=== PATIENT | female | born 1995 | race Caucasian/White ===

== ENCOUNTER 2022-05-03 20:35 | Emergency (ER) | payer BC, OTHER ==
--- NOTE | 2022-05-03 21:30 | ERPHSYRPT ---
- History of Present Illness Time Seen by Provider: 05/03/22 21:40 Source: patient Exam Limitations: no limitations Physician History: This is a 26-year-old obese white female patient of Dr. Juárez who has a history of intracranial arachnoid cyst. She is not on any antiseizure medication. She has not seen her neurologist in 9 to 10 years. Patient states that she has not had a seizure since 2019. While she was driving today, the patient noticed dizziness followed by what she feels was a seizure and then a headache after the seizure. Patient denies head trauma. However she does states she does have a pinched nerve in her neck and underwent deep massage today. Patient states she is breast-feeding. When she woke from the seizure she was in a field with her s ju view mirror broken Timing/Duration: today Severity: mild Character of Deficits: none, Right Facial Baseline/Normal Cognition: alert oriented x 3 Current Cognition: alert oriented x 3 Baseline Gait: walks w/o assistance Associated Symptoms: seizures Allergies/Adverse Reactions: kiwi Allergy (Verified 05/03/22 21:53) tongue swells Penicillins Allergy (Verified 05/03/22 21:52) Hives almonds Allergy (Uncoded 05/03/22 21:53) tongue swelling Home Medications: Naproxen 500 mg [Naprosyn 500 MG] 1 tab PO Q6H PRN PRN 05/03/22 [History] Hx Tetanus, Diphtheria Vaccination/Date Given: No Hx Influenza Vaccination/Date Given: No Hx Pneumococcal Vaccination/Date Given: No Travel Risk - International Travel Have you traveled outside of the country in past 3 weeks: No - Coronavirus Screening Are you exhibiting any of the following symptoms?: No Close contact with a COVID-19 positive Pt in past 14-21 Days: No - Review of Systems Constitutional: No Symptoms Eyes: No Symptoms Ears, Nose, & Throat: No Symptoms Respiratory: No Symptoms Cardiac: No Symptoms Abdominal/Gastrointestinal: No Symptoms Genitourinary Symptoms: No Symptoms Musculoskeletal: No Symptoms Skin: No Symptoms Neurological: Dizziness, Headache, Seizure Psychological: No Symptoms Endocrine: No Symptoms Hematologic/Lymphatic: No Symptoms Immunological/Allergic: No Symptoms All Other Systems: Reviewed and Negative - Past Medical History Pertinent Past Medical History: Yes Neurological History: Seizures ENT History: Other Cardiac History: Arrhythmia Respiratory History: No Pertinent History Endocrine Medical History: No Pertinent History Musculoskeletal History: No Pertinent History GI Medical History: Other History: No Pertinent History Psycho-Social History: No Pertinent History Female Reproductive Disorders: No Pertinent History Other Medical History: IN 2014, PATIENT DIAGNOSED WITH CYST IN UPPER NECK (NEAR C1 AND HAS NOT BEEN MONITORED SINCE THEN). - Past Surgical History Past Surgical History: No Neuro Surgical History: No Pertinent History Cardiac: No Pertinent History Respiratory: No Pertinent History Gastrointestinal: No Pertinent History Genitourinary: No Pertinent History Musculoskeletal: No Pertinent History Female Surgical History: No Pertinent History Other Surgical History: colonoscopy - Social History Smoking Status: Current every day smoker How long have you smoked: 2 Exposure to second hand smoke: Yes Drug Use: none Patient Lives Alone: No - Nursing Vital Signs Nursing Vital Signs: Initial Vital Signs Temperature 98.6 F 05/03/22 21:36 Pulse Rate 83 05/03/22 21:36 Respiratory Rate 18 05/03/22 21:36 Blood Pressure 144/89 05/03/22 21:36 O2 Sat by Pulse Oximetry 99 05/03/22 21:36 Pain Scale Pain Intensity 0 - Alston Coma Scale Best Eye Response (Alston): (4) open spontaneously Best Verbal Response (Blair): (5) oriented Best Motor Response (Blair): (6) obeys commands Alston Total: 15 - Physical Exam General Appearance: no apparent distress, alert, anxiety, obese Eye Exam: bilateral eye: normal inspection, PERRL, EOMI Ears, Nose, Throat Exam: normal ENT inspection, moist mucous membranes Neck Exam: normal inspection, non-tender, supple, full range of motion Respiratory: normal breath sounds, lungs clear, airway intact, No chest tenderness, No respiratory distress Cardiovascular: regular rate/rhythm, normal heart sounds, normal peripheral pulses Gastrointestinal: soft, normal bowel sounds, No tenderness Pelvic Exam: not done Rectal Exam: not done Back Exam: normal inspection, normal range of motion, No CVA tenderness, No vertebral tenderness Extremity Exam: normal inspection, normal range of motion, pelvis stable Mental Status: alert, oriented x 3, 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 Exam: normal hearing, normal speech, PERRL Coordination/Gait: normal finger to nose, normal gait, normal cerebellar function Motor/Sensory: no motor deficit, no sensory deficit Skin Exam: normal color, warm, dry SpO2 Interpretation: normal O2 Delivery: Room Air Ordered Tests: Active Orders 24 hr Category Date Time Status Clean Catch Urine Specimen STAT Care 05/03/22 21:55 Active Pulse Oximetry (ED) STAT Care 05/03/22 21:48 Active Seizure Precautions -SCCHED STAT Care 05/03/22 21:48 Active HEAD WITHOUT CONTRAST [CT] Stat Exams 05/03/22 21:49 Taken CBC W DIFF Stat Lab 05/03/22 22:22 Completed CMP Stat Lab 05/03/22 22:22 Completed HCG QUALITATIVE,SERUM Stat Lab 05/03/22 22:22 Completed UA W/RFX UR CULTURE Stat Lab 05/03/22 21:55 Completed Urine Triage Profile Stat Lab 05/03/22 21:55 Completed Lab/Rad Data: Laboratory Result Diagrams 05/03/22 22:22 05/03/22 22:22 Laboratory Results 05/03/22 05/03/22 05/03/22 Range/Units 22:22 22:22 22:22 WBC 10.3 (4.0-10.5) x10^3/uL RBC 4.10 (4.1-5.4) x10^6/uL Hgb 12.0 (12.0-16.0) g/dL Hct 38.1 (35-47) % MCV 92.9 (78-100) fL MCH 29.3 (26-32) pg MCHC 31.5 L (32-36) g/dL RDW 11.8 (11.5-14.0) % Plt Count 296 (150-450) x10^3/uL MPV 10.3 (7.5-11.0) fL Gran % 59.0 (36.0-66.0) % Immature Gran % (Auto) 0.1 (0.00-0.4) % Nucleat RBC Rel Count 0.0 (0.00-0.1) % Eos # (Auto) 0.12 (0-0.5) x10^3/uL Immature Gran # (Auto) 0.01 (0.00-0.03) x10^3u/L Absolute Lymphs (auto) 3.35 (1.0-4.6) x10^3/uL Absolute Monos (auto) 0.69 (0.0-1.3) x10^3/uL Absolute Nucleated RBC 0.00 (0.00-0.01) x10^3u/L Lymphocytes % 32.6 (24.0-44.0) % Monocytes % 6.7 (0.0-12.0) % Eosinophils % 1.2 (0.00-5.0) % Basophils % 0.4 (0.0-0.4) % Absolute Granulocytes 6.06 (1.4-6.9) x10^3/uL Basophils # 0.04 (0-0.4) x10^3/uL Sodium 138 (137-145) mmol/L Potassium 4.2 (3.5-5.1) mmol/L Chloride 107 (98-107) mmol/L Carbon Dioxide 25 (22-30) mmol/L Anion Gap 10.9 (5-15) MEQ/L BUN 17 (7-17) mg/dL Creatinine 0.58 (0.52-1.04) mg/dL Estimated GFR > 60.0 ML/MIN Glucose 104 (74-106) mg/dL Calcium 9.5 (8.4-10.2) mg/dL Total Bilirubin 0.30 (0.2-1.3) mg/dL AST 20 (14-36) U/L ALT 20 (0-35) U/L Alkaline Phosphatase 102 (38-126) U/L Serum Total Protein 7.2 (6.3-8.2) g/dL Albumin 4.2 (3.5-5.0) g/dL Serum , Qual NEGATIVE (Negative) Urine Color (Yellow) Urine Appearance (Clear) Urine pH (4.6-8.0) Ur Specific Hudson (1.005-1.030) Urine Protein (Negative) Urine Glucose (UA) (Negative) mg/dL Urine Ketones (Negative) Urine Blood (Negative) Urine Nitrite (Negative) Urine Bilirubin (Negative) Urine Urobilinogen (0.2) mg/dL Ur Leukocyte Esterase (Negative) U Hyaline Cast (Auto) (0-2) /LPF Urine Microscopic RBC (0-5) /HPF Urine Microscopic WBC (0-5) /HPF Ur Epithelial Cells (None Seen) /HPF Urine Bacteria (None Seen) /HPF Urine Culture Reflexed (NO) Urine Opiates Level (NEGATIVE) Ur Methadone (NEGATIVE) Urine Barbiturates (NEGATIVE) Ur Phencyclidine (PCP) (NEGATIVE) Urine Amphetamine (NEGATIVE) U Benzodiazepine Level (NEGATIVE) Urine Cocaine (NEGATIVE) Urine Marijuana (THC) (NEGATIVE) 05/03/22 05/03/22 Range/Units 21:55 21:55 WBC (4.0-10.5) x10^3/uL RBC (4.1-5.4) x10^6/uL Hgb (12.0-16.0) g/dL Hct (35-47) % MCV (78-100) fL MCH (26-32) pg MCHC (32-36) g/dL RDW (11.5-14.0) % Plt Count (150-450) x10^3/uL MPV (7.5-11.0) fL Gran % (36.0-66.0) % Immature Gran % (Auto) (0.00-0.4) % Nucleat RBC Rel Count (0.00-0.1) % Eos # (Auto) (0-0.5) x10^3/uL Immature Gran # (Auto) (0.00-0.03) x10^3u/L Absolute Lymphs (auto) (1.0-4.6) x10^3/uL Absolute Monos (auto) (0.0-1.3) x10^3/uL Absolute Nucleated RBC (0.00-0.01) x10^3u/L Lymphocytes % (24.0-44.0) % Monocytes % (0.0-12.0) % Eosinophils % (0.00-5.0) % Basophils % (0.0-0.4) % Absolute Granulocytes (1.4-6.9) x10^3/uL Basophils # (0-0.4) x10^3/uL Sodium (137-145) mmol/L Potassium (3.5-5.1) mmol/L Chloride (98-107) mmol/L Carbon Dioxide (22-30) mmol/L Anion Gap (5-15) MEQ/L BUN (7-17) mg/dL Creatinine (0.52-1.04) mg/dL Estimated GFR ML/MIN Glucose (74-106) mg/dL Calcium (8.4-10.2) mg/dL Total Bilirubin (0.2-1.3) mg/dL AST (14-36) U/L ALT (0-35) U/L Alkaline Phosphatase (38-126) U/L Serum Total Protein (6.3-8.2) g/dL Albumin (3.5-5.0) g/dL Serum , Qual (Negative) Urine Color Yellow (Yellow) Urine Appearance Clear (Clear) Urine pH 6.5 (4.6-8.0) Ur Specific Hudson 1.010 (1.005-1.030) Urine Protein Negative (Negative) Urine Glucose (UA) Negative (Negative) mg/dL Urine Ketones Negative (Negative) Urine Blood Negative (Negative) Urine Nitrite Negative (Negative) Urine Bilirubin Negative (Negative) Urine Urobilinogen 0.2 (0.2) mg/dL Ur Leukocyte Esterase Negative (Negative) U Hyaline Cast (Auto) NONE SEEN (0-2) /LPF Urine Microscopic RBC 0-2 (0-5) /HPF Urine Microscopic WBC 0-2 (0-5) /HPF Ur Epithelial Cells None Seen (None Seen) /HPF Urine Bacteria None Seen (None Seen) /HPF Urine Culture Reflexed NO (NO) Urine Opiates Level NEGATIVE (NEGATIVE) Ur Methadone NEGATIVE (NEGATIVE) Urine Barbiturates NEGATIVE (NEGATIVE) Ur Phencyclidine (PCP) NEGATIVE (NEGATIVE) Urine Amphetamine NEGATIVE (NEGATIVE) U Benzodiazepine Level NEGATIVE (NEGATIVE) Urine Cocaine NEGATIVE (NEGATIVE) Urine Marijuana (THC) NEGATIVE (NEGATIVE) - Progress Progress: improved Progress Note: 05/03/22 23:11 CT scan of the head without contrast shows no acute intracranial abnormality Counseled pt/family regarding: lab results, diagnosis, need for follow-up, rad results - Departure Departure Disposition: Home Clinical Impression: New onset seizure without head trauma Condition: Stable Critical Care Time: No Referrals: HUGO JUÁREZ MD [Primary Care Provider] - Follow up/PCP as directed Additional Instructions: Take your medication as prescribed. Call Dr. Juárez's office tomorrow morning, 05/04/2022, to make arranges for follow-up appointment and possible referral to neurologist if indicated.
[2022-05-03 22:24] LABS: Absolute Neutrophil Ct (ANC) 6.06 x10^3/uL (1.4-6.9); Basophil (Absolute #) 0.04 x10^3/uL (0-0.4); Eosinophil % 1.2 % (0.00-5.0); Eosinophil (Absolute #) 0.12 x10^3/uL (0-0.5); Hematocrit 38.1 % (35-47); Lymphocyte (Absolute #) 3.35 x10^3/uL (1.0-4.6); Lymphocytes % 32.6 % (24.0-44.0); Mean Cell Volume 92.9 fL (78-100); Mean Corpuscular Hemoglobin 29.3 pg (26-32); Mean Corpuscular Hgb Concent. 31.5 g/dL (32-36); Mean Platelet Volume 10.3 fL (7.5-11.0); Monocyte (Absolute #) 0.69 x10^3/uL (0.0-1.3); Monocytes % 6.7 % (0.0-12.0); Platelet Count 296 x10^3/uL (150-450); Red Cell Distribution Width 11.8 % (11.5-14.0); White Blood Count 10.3 x10^3/uL (4.0-10.5)
[2022-05-03 22:34] LABS: Appearance Clear (Clear); Bacteria None Seen /HPF (None Seen); Bilirubin Negative (Negative); Blood Negative (Negative); Epithelial Cells None Seen /HPF (None Seen); Glucose, Urine Negative (Negative); Hyaline Casts NONE SEEN /LPF (0-2); Ketones Negative (Negative); Leukocyte Esterase Negative (Negative); Nitrite Negative (Negative); Ph 6.5 (4.6-8.0); Protein,Urine Dip Negative (Negative); RBC 0-2 /HPF (0-5); Urobilinogen 0.2 mg/dL (0.2); WBC 0-2 /HPF (0-5)
[2022-05-03 22:39] LABS: ALBUMIN 4.2 g/dL (3.5-5.0); ALKALINE PHOSPHATASE 102 U/L (38-126); ANION GAP 10.9 MEQ/L (5-15); BLOOD UREA NITROGEN 17 mg/dL (7-17); CHLORIDE 107 mmol/L (98-107); Calcium 9.5 mg/dL (8.4-10.2); Carbon Dioxide 25 mmol/L (22-30); Creatinine 1 0.58 mg/dL (0.52-1.04); EST GLOMERULAR FILTRATION RATE > 60.0 ML/MIN; Glucose 104 mg/dL (74-106); Potassium 4.2 mmol/L (3.5-5.1); SGOT/AST 20 U/L (14-36); SGPT/ALT 20 U/L (0-35); SODIUM 138 mmol/L (137-145); Total Protein 7.2 g/dL (6.3-8.2)
[2022-05-03 22:50] LABS: Amphetamine,Urine NEGATIVE (NEGATIVE); Barbiturate,Urine NEGATIVE (NEGATIVE); Benzodiazepine,Urine NEGATIVE (NEGATIVE); Cocaine,Urine NEGATIVE (NEGATIVE); Methadone,Urine NEGATIVE (NEGATIVE); Opiate,Urine NEGATIVE (NEGATIVE); PCP,Urine NEGATIVE (NEGATIVE); THC,Urine NEGATIVE (NEGATIVE)
[2022-05-03 22:54] LABS: ADD URINE CULTURE? NO (NO)
[2022-05-03 23:21] VITALS: BP 114/83; PULSE 86; O2SAT 98
[2022-05-03] MEDS ORDERED: Ativan 0.5 MG PO ONE (23:31)
[2022-05-03] MEDS ORDERED: Ativan 1 MG ONE (23:33)
--- NOTE | 2022-05-04 09:00 | XRAY ---
Indication: Seizure. Headache and dizziness. Multiple contiguous axial images obtained through the head without contrast. Comparison: March 25, 2014 Normal appearing brain parenchyma, ventricles, and bony calvarium. Visualized paranasal sinuses and mastoid air cells are clear. Impression: Continued normal CT head without contrast exam. Comment: Preliminary interpretation made by [facility]. No critical discrepancy.
== END 2022-05-03 23:46 | disposition home or self-care (01) ==
LOC: ED 20:35
DX: R56.9 Unspecified convulsions (principal); R42 Dizziness and giddiness; R51.9 Headache, unspecified; Z72.0 Tobacco use
CPT/HCPCS: 36415; 70450; 80053; 80307; 81001; 84703; 85025; 94760; 99283; A9270-GY

== ENCOUNTER 2023-01-19 14:10 | Emergency (ER) | payer OTHER ==
--- NOTE | 2023-01-19 14:24 | ERPHSYRPT ---
- History of Present Illness Time Seen by Provider: 01/19/23 14:24 Source: patient Exam Limitations: no limitations Physician History: This is an overweight 27-year-old white female patient of Dr. Juárez who presents with sore throat that was sudden onset at 2 AM this morning. Patient has a history of seizure disorder and arrhythmias. She was seen at [facility] and they performed COVID, influenza a and B, RSV and group A strep test per her report. Patient reports that the results were negative. However, they did not provide her with any other treatment. Patient is allergic to penicillin. She has never taken Keflex in the past. She denies chest pain. She denies shortness of breath. Timing/Duration: today Cough Quality/Degree: no cough Possible Cause: no prior episodes Modifying Factors: Improves With: other (Hurts to swallow) Associated Symptoms: sore throat, No chest pain/soreness, No cough, No shortness of breath Allergies/Adverse Reactions: kiwi Allergy (Verified 01/19/23 14:23) tongue swells Penicillins Allergy (Verified 01/19/23 14:23) Hives almonds Allergy (Uncoded 01/19/23 14:23) tongue swelling Home Medications: Escitalopram Oxalate [Lexapro] 10 mg PO DAILY 01/19/23 [History] Tranexamic Acid 2 tab PO TID 01/19/23 [History] Hx Tetanus, Diphtheria Vaccination/Date Given: No Hx Influenza Vaccination/Date Given: No Hx Pneumococcal Vaccination/Date Given: No Travel Risk - International Travel Have you traveled outside of the country in past 3 weeks: No - Coronavirus Screening Are you exhibiting any of the following symptoms?: No Close contact with a COVID-19 positive Pt in past 14-21 Days: No - Vaccine Status Have you recieved a Covid-19 vaccination: No - Review of Systems Constitutional: No Symptoms Eyes: No Symptoms Ears, Nose, & Throat: Throat Pain Respiratory: No Symptoms Cardiac: No Symptoms Abdominal/Gastrointestinal: No Symptoms Genitourinary Symptoms: No Symptoms Musculoskeletal: No Symptoms Skin: No Symptoms Neurological: No Symptoms Psychological: No Symptoms Endocrine: No Symptoms Hematologic/Lymphatic: No Symptoms Immunological/Allergic: No Symptoms All Other Systems: Reviewed and Negative - Past Medical History Pertinent Past Medical History: Yes Neurological History: Seizures ENT History: Other Cardiac History: Arrhythmia Respiratory History: No Pertinent History Endocrine Medical History: No Pertinent History Musculoskeletal History: No Pertinent History GI Medical History: Other History: No Pertinent History Psycho-Social History: No Pertinent History Female Reproductive Disorders: No Pertinent History Other Medical History: IN 2014, PATIENT DIAGNOSED WITH CYST IN UPPER NECK (NEAR C1 AND HAS NOT BEEN MONITORED SINCE THEN). - Past Surgical History Past Surgical History: No Neuro Surgical History: No Pertinent History Cardiac: No Pertinent History Respiratory: No Pertinent History Gastrointestinal: No Pertinent History Genitourinary: No Pertinent History Musculoskeletal: No Pertinent History Female Surgical History: No Pertinent History Other Surgical History: colonoscopy - Social History Smoking Status: Current every day smoker How long have you smoked: 2 Exposure to second hand smoke: Yes Drug Use: none Patient Lives Alone: No - Nursing Vital Signs Nursing Vital Signs: Initial Vital Signs Temperature 100.2 F 01/19/23 14:25 Pulse Rate 115 H 01/19/23 14:25 Respiratory Rate 24 01/19/23 14:25 Blood Pressure 131/67 01/19/23 14:25 O2 Sat by Pulse Oximetry 96 01/19/23 14:25 Pain Scale Pain Intensity 6 - Physical Exam General Appearance: no apparent distress, alert, anxiety, obese Eye Exam: PERRL/EOMI, eyes nml inspection Ears, Nose, Throat Exam: normal ENT inspection, moist mucous membranes, other (Uvula swollen) Neck Exam: normal inspection ( with fibrinous exudate present), non-tender, supple, full range of motion Respiratory Exam: normal breath sounds, lungs clear, airway intact, No chest tenderness, No respiratory distress Cardiovascular Exam: tachycardia Gastrointestinal/Abdomen Exam: soft, normal bowel sounds, No tenderness Pelvic Exam: not done Rectal Exam: not done Back Exam: normal inspection, normal range of motion, No CVA tenderness, No vertebral tenderness Extremity Exam: normal inspection, normal range of motion, pelvis stable Neurologic Exam: alert, oriented x 3, 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 Level of complexity in the work-up performed is based on review of the patient's past medical history, review of the patient's medication list, review the patient's drug allergy list, history present illness and physical findings on examination. This patient does not require any radiographic or laboratory studies. Patient has uvulitis. She will be treated with Z-Arnulfo, prednisone and hydrocodone elixir as an outpatient. These medications will be remotely sent to her pharmacy. Blood Culture(s) Obtained: No Antibiotics given: No Counseled pt/family regarding: diagnosis, need for follow-up Medical Desision Making - Diagnostic Testing Diagnostic test were ordered, analyzed, and reviewed by me: No - Risk of complications The pt has a mod risk of morbidity or mortality based on: Need for prescription drug management - Departure Departure Disposition: Home Clinical Impression: Uvulitis Condition: Stable Critical Care Time: No Referrals: HUGO JUÁREZ MD [Primary Care Provider] - Follow up/PCP as directed Additional Instructions: Drink plenty of cool liquids. Take your medication as prescribed. Follow-up with your primary care provider by phone today, 01/19/2023, to make arrangements for follow-up appointment for further evaluation and management in the next 3 to 5 days Prescriptions: Hydrocodone/Acetaminophen [Hydrocodone-Acetamn 7.5-325/15] 10 ml PO Q8H PRN #120 ml MDD 30 ml PRN Reason: Cough
[2023-01-19 14:44] VITALS: TEMP 100.2
[2023-01-19 15:09] VITALS: BP 121/64; PULSE 101; RESP 16; O2SAT 97
== END 2023-01-19 15:09 | disposition home or self-care (01) ==
LOC: ED 14:10
DX: K12.2 Cellulitis and abscess of mouth (principal); J02.9 Acute pharyngitis, unspecified; Z79.891 Long term (current) use of opiate analgesic; Z79.899 Other long term (current) drug therapy; Z28.310 Unvaccinated for COVID-19; Z72.0 Tobacco use
CPT/HCPCS: 99281

== ENCOUNTER 2023-10-10 18:01 | Emergency (ER) | payer OTHER ==
[2023-10-10 18:34] VITALS: PULSE 94; RESP 20; TEMP 97.3
--- NOTE | 2023-10-10 19:03 | ERPHSYRPT ---
- History of Present Illness Time Seen by Provider: 10/10/23 18:59 Source: patient Exam Limitations: no limitations Patient Subjective Stated Complaint: Pt states "I have diarrhea and vomiting today and I am dehydrated." Triage Nursing Assessment: Pt presented alert and oriented X 3, skin pwd. Pt ambulates with an upright steady gait, able to speak in clear full sentences. Pt resting comfortably on the bed. Physician History: 28-year-old female 3 weeks post hysterectomy presents to our ED for IV fluids. Patient went to an outside hospital yesterday. She had a CAT scan fluids labs and urinalysis. Patient was diagnosed with a UTI. Patient was discharged home. Since her discharge yesterday patient vomited 2-3 times and feels she is dehydrated. No diarrhea no rash no fever. No abdominal pain. Patient does not want additional blood work. She declined imaging studies. She declined everything other than IV fluids. She otherwise feels well and voices no other complaints or concerns at this time. Portions of this note were created with voice recognition technology. There may be grammatical, spelling, punctuation or sound alike errors Timing/Duration: today Severity: moderate Modifying Factors: Improves With: nothing Associated Symptoms: denies symptoms Allergies/Adverse Reactions: kiwi Allergy (Verified 01/19/23 14:23) tongue swells Penicillins Allergy (Verified 01/19/23 14:23) Hives almonds Allergy (Uncoded 01/19/23 14:23) tongue swelling Home Medications: Escitalopram Oxalate [Lexapro] 10 mg PO DAILY 01/19/23 [History] Hx Tetanus, Diphtheria Vaccination/Date Given: No Hx Influenza Vaccination/Date Given: No Hx Pneumococcal Vaccination/Date Given: No Immunizations Up to Date: No Travel Risk - International Travel Have you traveled outside of the country in past 3 weeks: No - Emerging Infectious Disease Are you exhibiting symptoms associated with any current EIDs: No - Review of Systems Constitutional: No Symptoms, No Fever, No Chills Eyes: No Symptoms Ears, Nose, & Throat: No Symptoms Respiratory: No Symptoms, No Cough, No Dyspnea Cardiac: No Symptoms, No Chest Pain, No Edema, No Syncope Abdominal/Gastrointestinal: No Symptoms, No Abdominal Pain, No Nausea, No Vomiting, No Diarrhea Genitourinary Symptoms: No Symptoms, No Dysuria Musculoskeletal: No Symptoms, No Back Pain, No Neck Pain Skin: No Symptoms, No Rash Neurological: No Symptoms, No Dizziness, No Focal Weakness, No Sensory Changes Psychological: No Symptoms Endocrine: No Symptoms Hematologic/Lymphatic: No Symptoms Immunological/Allergic: No Symptoms All Other Systems: Reviewed and Negative - Past Medical History Pertinent Past Medical History: Yes Neurological History: Seizures ENT History: Other Cardiac History: Arrhythmia Respiratory History: No Pertinent History Endocrine Medical History: No Pertinent History Musculoskeletal History: No Pertinent History GI Medical History: Other History: No Pertinent History Psycho-Social History: No Pertinent History Female Reproductive Disorders: No Pertinent History Other Medical History: IN 2014, PATIENT DIAGNOSED WITH CYST IN UPPER NECK (NEAR C1 AND HAS NOT BEEN MONITORED SINCE THEN). - Past Surgical History Past Surgical History: Yes Neuro Surgical History: No Pertinent History Cardiac: No Pertinent History Respiratory: No Pertinent History Gastrointestinal: No Pertinent History Genitourinary: No Pertinent History Musculoskeletal: No Pertinent History Female Surgical History: No Pertinent History Other Surgical History: colonoscopy. tubal. hysterectomy. lymph node removal - Female History Hx Last Menstrual Period: hysterectomy Hx Now: No - Social History Smoking Status: Never smoker How long have you smoked: 2 Exposure to second hand smoke: Yes Drug Use: marijuana Patient Lives Alone: No - Social Determinants of Health Will the patient participate in the screening: Declined to provide - Nursing Vital Signs Nursing Vital Signs: Initial Vital Signs Temperature 97.3 F 10/10/23 18:29 Pulse Rate 94 H 10/10/23 18:29 Respiratory Rate 20 10/10/23 18:29 Blood Pressure 182/104 10/10/23 18:29 O2 Sat by Pulse Oximetry 98 10/10/23 18:29 Pain Scale Pain Intensity 0 - Physical Exam General Appearance: no apparent distress, alert Eye Exam: PERRL/EOMI, eyes nml inspection Ears, Nose, Throat Exam: normal ENT inspection, TMs normal, pharynx normal, moist mucous membranes Neck Exam: normal inspection, non-tender, supple, full range of motion Respiratory Exam: normal breath sounds, lungs clear, No respiratory distress Cardiovascular Exam: regular rate/rhythm, normal heart sounds, normal peripheral pulses Gastrointestinal/Abdomen Exam: soft, normal bowel sounds, No tenderness, No mass Back Exam: normal inspection, normal range of motion, No CVA tenderness, No vertebral tenderness Extremity Exam: normal inspection, normal range of motion, pelvis stable Neurologic Exam: alert, oriented x 3, cooperative, normal mood/affect, nml cerebellar function, nml station & gait, sensation nml, No motor deficits Skin Exam: normal color, warm, dry, No rash Lymphatic Exam: No adenopathy SpO2 Interpretation: normal SpO2: 98 O2 Delivery: Room Air - Course Nursing assessment & vital signs reviewed: Yes Ordered Tests: Active Orders 24 hr Category Date Time Status IV Insertion STAT Care 10/10/23 19:48 Active Medication Summary Discontinued Medications Generic Name Dose Route Start Last Admin Trade Name Jamarcus PRN Reason Stop Dose Admin Sodium Chloride 1,000 mls @ 999 mls/hr 10/10/23 19:46 10/10/23 20:08 Sodium Chloride 0.9% 1000 Ml IV 10/10/23 20:46 999 mls/hr .Q1H1M STA Administration Sodium Chloride Confirm 10/10/23 20:07 Sodium Chloride 0.9% 1000 Ml Administered 10/10/23 20:08 Dose 1,000 mls @ ud .ROUTE .[facility] - Progress Progress: improved Progress Note: 28-year-old female presents to emergency department for IV fluids. Patient states she vomited a couple times today. Patient otherwise feels well. No active nausea. IV fluids administered. Patient sleeping in room she feels well patient patient ready for discharge. A prescription for Zofran was forwarded to patient's pharmacy per her request. Patient declined workup. She declined labs and imaging studies. Patient was in an outside ED yesterday. Laboratory workup was negative. Patient was found to have a urinary tract infection she is currently on oral antibiotics. CT abdomen pelvis performed yesterday was within normal limits per patient. Patient agrees to follow-up with her primary care doctor within 48 hours for reevaluation. Portions of this note were created with voice recognition technology. There may be grammatical, spelling, punctuation or sound alike errors Complexity problem addressed is moderate acute complicated. No critical care time. Complex of data reviewed and analyzed is moderate. Test ordered test reviewed results analyzed and correlated clinically with history and physical exam. Risk of complication and or risk morbidity/mortality patient management is moderate. A prescription for Zofran forwarded to patient's pharmacy. Vital stable. Time spent to discharge patient approximately 20 minutes. Plan of care established for shared decision making. No social determinants of health present impede follow-up. Portions of this note were created with voice recognition technology. There may be grammatical, spelling, punctuation or sound alike errors 10/10/23 22:05 Counseled pt/family regarding: diagnosis, need for follow-up - Departure Departure Disposition: Home Clinical Impression: Nausea and vomiting Condition: Stable Critical Care Time: No Referrals: HUGO JUÁREZ MD [Primary Care Provider] - Follow up/PCP as directed Additional Instructions: Discharge/Care Plan JAYDA YBARRA was seen on 10/10/23 in the Emergency Room. The patient was counseled regarding Diagnosis,Lab results, Imaging studies, need for follow up and when to return to the Emergency Room. Prescriptions given: Discharge Note I have spoken with the patient and/or caregivers. I have explained the patient's condition, diagnosis and treatment plan based on the information available to me at this time. I have answered the patient's and/or caregiver's questions and addressed any concerns. The patient and/or caregivers have as good understanding of the patient's diagnosis, condition and treatment plan as can be expected at this point. The vital signs have been stable. The patient's condition is stable and appropriate for discharge from the emergency department. The patient will pursue further outpatient evaluation with the primary care physician or other designated or consulting physician as outlined in the discharge instructions. The patient and/or caregivers are agreeable to this plan of care and follow-up instructions have been explained in detail. The patient and/or caregivers have received these instruction. The patient/and or caregivers are aware that any significant change in condition or worsening of symptoms should prompt an immediate return to this or the closest emergency department or call 911. Prescriptions: Ondansetron ODT 4 MG [Zofran Odt 4 mg] 4 mg PO Q6H PRN PRN #10 tablet PRN Reason: Vomiting
[2023-10-10] MEDS ORDERED: Sodium Chloride 0.9% 1000 ML 1,000 ML ONE (20:07)
[2023-10-10] MEDS: Sodium Chloride 0.9% 1000 ML 1,000 ML IV STA (20:08)
[2023-10-10 22:01] VITALS: O2SAT 98
[2023-10-10 22:21] VITALS: BP 109/80
== END 2023-10-10 22:19 | disposition home or self-care (01) ==
LOC: ED 18:01
DX: R11.2 Nausea with vomiting, unspecified (principal); Z79.899 Other long term (current) drug therapy
CPT/HCPCS: 96360; 99283

== ENCOUNTER 2024-04-25 10:18 | Day surgery (SDC) | payer OTHER ==
[2024-04-25] MEDS ORDERED: CLINDAMYCIN-D5W 900 MG/50 ML*** 900 MG/50 ML BAG IV ONE (10:49)
[2024-04-25] MEDS ORDERED: Lactated Ringers 1,000 ML IV ONE (10:50)
[2024-04-25] MEDS: CLINDAMYCIN-D5W 900 MG/50 ML*** 900 MG/50 ML BAG IV SCH (10:52)
[2024-04-25] MEDS: Lactated Ringers 1,000 ML IV SCH (10:53)
[2024-04-25 11:06] VITALS: O2SAT 97
[2024-04-25] MEDS ORDERED: propofoL IV ONE (11:54)
[2024-04-25] MEDS ORDERED: Zofran 4 MG/2 ML VIAL ONE (11:55)
[2024-04-25] MEDS ORDERED: DEXMEDETOMIDINE 80 MCG/20ML-NS IV ONE (11:55)
[2024-04-25] MEDS ORDERED: Xylocaine-Mpf 2% 5 Ml Vial ONE (11:55)
[2024-04-25] MEDS ORDERED: Decadron 4 MG INJ ONE (11:55)
[2024-04-25] MEDS ORDERED: TORAdol 30 mg Injection ONE (11:55)
[2024-04-25] MEDS ORDERED: Versed 2 MG/2 ML Injection ONE (11:56)
[2024-04-25] MEDS ORDERED: SUBLIMAZE 100 MCG/2 ML ONE (11:57)
[2024-04-25] MEDS ORDERED: Sensorcaine 0.25% 10 ML ONE (12:19)
[2024-04-25 13:29] VITALS: RESP 16; TEMP 97
[2024-04-25 13:56] VITALS: BP 132/90; PULSE 62
--- NOTE | 2024-04-26 14:49 | OP ---
SURGERY DATE/TIME: 04/25/2024 [id number] PREOPERATIVE DIAGNOSIS: Symptomatic left axillary cyst. POSTOPERATIVE DIAGNOSIS: Symptomatic left axillary cyst. PROCEDURE: Excision of left axillary cyst, 1 x 2.5 cm down the to the subcutaneous fat. SURGEON: José Almazan MD ANESTHESIA: General and local. PATIENT CONDITION: Stable. COMPLICATIONS: None. SPECIMENS: Left axillary cyst. INDICATIONS: The patient is a 28-year-old female with symptomatic bothersome left axillary cyst. These are as marked in preoperative holding area. Risk of infection, bleeding, scarring, recurrence discussed. She would like to proceed. There is no evidence of any hidradenitis otherwise. DESCRIPTION OF PROCEDURE: Patient brought to the operating room. General and local anesthesia induced by Anesthesia. She actually is identified to have head lice on preparation, but she is routinely prepped and draped and time-out performed. The lesion had been marked preoperatively. The cyst is palpable at the left axilla that a 1 x 2.5 cm ellipsis marked out. The skin is incised and cyst is taken in its entirety and sent for pathology. There was good hemostasis. The wound was then closed with 3-0 chromic suture in an interrupted fashion. That is satisfactory. Plain dressing applied. All counts were correct. Patient tolerated the procedure well and was taken to Recovery in stable condition.
== END 2024-04-25 13:56 | disposition home or self-care (01) ==
LOC: SDC 10:18
PROVIDERS: ATTEND Surgery
DX: L02.412 Cutaneous abscess of left axilla (principal)
CPT/HCPCS: J1100; J1885; J2250; J2405; J2704; J3010